=== PATIENT | female | born 1990 | race Caucasian/White ===

== ENCOUNTER 2016-11-02 08:42 | Emergency (ER) | payer MEDICAID ==
[~2016-11-02] VITALS: Ht 160 cm; Wt 142.0 kg
[~2016-11-02 08:42] MED LIST: ASTHMA INH; TRAM50TA PO
[2016-11-02 08:48] VITALS: BP 245/105; PULSE 115; RESP 30; O2SAT 96
[2016-11-02 08:55] VITALS: BP 183/88; PULSE 124; RESP 22; TEMP 98.3; O2SAT 98
[2016-11-02] MEDS ORDERED: CITA40TA4 PO (09:02)
[2016-11-02 09:13] VITALS: O2SAT 98
[2016-11-02] MEDS ORDERED: SODIUM CHLOR 0.9% 1000 ML INJ 1,000 ML IV ONE ×2 (09:15→10:30)
[2016-11-02] MEDS ORDERED: SODIUM CHLORIDE 0.9% FLUSH 5 ML FLUSH IVF PRN (09:15)
[2016-11-02] MEDS ORDERED: ONDANSETRON HCL 4 MG/2 ML VIAL IV PUSH ONE (09:15)
[2016-11-02] MEDS ORDERED: LORazepam 2 MG/ML VIAL IV ONE (09:15)
--- NOTE | 2016-11-02 09:20 | PD ---
HPI Chief Complaint: Medical Clearance Time Seen by Provider: 08:52 Travel History International Travel<30 days: No Contact w/Intl Traveler<30days: No Traveled to known affect area: No History of Present Illness HPI 26 y/o female presents with vomiting and diarrhea and anxious after starting citalopram 40 mg yesterday. She is very anxious and tearful and not wanting to talk on initial examination as she says that she's already told other people everything but she denies current suicidal or homicidal ideations. [facility] Past Medical History Narrative Medical On review of records Arthritis: Yes Anxiety: Yes Depression: Yes Psychiatric: Yes (ptsd) Tetanus Vaccination: Unknown ?: Not Past Surgical History Narrative Surgical On review of records Ear Surgery: Yes (TUBES) Tonsillectomy: Yes Social History Alcohol Use: No Tobacco Use: No Substance Use: No Allergies-Medications (Allergen,Severity, Reaction): Coded Allergies: No Known Allergies (Verified , 11/02/16) Reported Meds & Prescriptions Reported Meds & Active Scripts Active Metformin (Metformin HCl) 500 Mg Tab 500 Mg PO BIDPC With meals Reported Citalopram (Citalopram Hydrobromide) 40 Mg Tab 40 Mg PO DAILY Review of Systems ROS Limitations: Other: (anxious and not wanting to answer questions) Physical Exam Narrative GENERAL: Obese, well-developed patient. Tearful SKIN: Warm and diaphoretic HEAD: Normocephalic and atraumatic. EYES: No injection or drainage. ENT: No nasal drainage noted. NECK: Supple, trachea midline. CARDIOVASCULAR: Tachycardic rate and regular rhythm RESPIRATORY: Breath sounds equal bilaterally. No accessory muscle use. GASTROINTESTINAL: Abdomen soft, non-tender, nondistended. EXTREMITIES: No edema. NEUROLOGICAL: Awake. Moves all extremities. Normal speech. Data Data Last Documented VS Vital Signs Date Time Temp Pulse Resp B/P Pulse Ox O2 Delivery O2 Flow Rate FiO2 11/02/16 13:42 89 20 130/87 99 11/02/16 09:13 Room Air 11/02/16 08:55 98.3 Orders Complete Blood Count With Diff (11/02/16 09:01) Comprehensive Metabolic Panel (11/02/16 09:01) Ed Urine Pregnancytest Poc (11/02/16 09:01) Oximetry (11/02/16 09:01) Iv Access Insert/Monitor (11/02/16 09:01) Ecg Monitoring (11/02/16 09:01) Psych Screen (11/02/16 09:01) Sodium Chloride 0.9% Flush (Ns Flush) (11/02/16 09:15) Lorazepam Inj (Ativan Inj) (11/02/16 09:15) Drug Screen, Random Urine (11/02/16 09:01) Alcohol (Ethanol) (11/02/16 09:01) Sodium Chlor 0.9% 1000 Ml Inj (Ns 1000 M (11/02/16 09:15) Ondansetron Inj (Zofran Inj) (11/02/16 09:15) Electrocardiogram (11/02/16 ) Blood Glucose (11/02/16 09:03) Sodium Chlor 0.9% 1000 Ml Inj (Ns 1000 M (11/02/16 10:30) Labs Laboratory Tests Test 11/02/16 11/02/16 09:15 10:15 White Blood Count 10.4 TH/MM3 Red Blood Count 5.03 MIL/MM3 Hemoglobin 13.6 GM/DL Hematocrit 40.5 % Mean Corpuscular Volume 80.5 FL Mean Corpuscular Hemoglobin 27.0 PG Mean Corpuscular Hemoglobin 33.6 % Concent Red Cell Distribution Width 15.1 % Platelet Count 345 TH/MM3 Mean Platelet Volume 8.3 FL Neutrophils (%) (Auto) 65.4 % Lymphocytes (%) (Auto) 25.3 % Monocytes (%) (Auto) 7.1 % Eosinophils (%) (Auto) 1.3 % Basophils (%) (Auto) 0.9 % Neutrophils # (Auto) 6.8 TH/MM3 Lymphocytes # (Auto) 2.6 TH/MM3 Monocytes # (Auto) 0.7 TH/MM3 Eosinophils # (Auto) 0.1 TH/MM3 Basophils # (Auto) 0.1 TH/MM3 CBC Comment DIFF FINAL Differential Comment Sodium Level 134 MEQ/L Potassium Level 3.9 MEQ/L Chloride Level 99 MEQ/L Carbon Dioxide Level 24.5 MEQ/L Anion Gap 11 MEQ/L Blood Urea Nitrogen 11 MG/DL Creatinine 0.88 MG/DL Estimat Glomerular Filtration 77 ML/MIN Rate Random Glucose 332 MG/DL Calcium Level 8.7 MG/DL Total Bilirubin 0.4 MG/DL Aspartate Amino Transf 48 U/L (AST/SGOT) Alanine Aminotransferase 49 U/L (ALT/SGPT) Alkaline Phosphatase 99 U/L Total Protein 7.9 GM/DL Albumin 3.7 GM/DL Ethyl Alcohol Level LESS THAN 3 MG/DL Urine Opiates Screen NEG Urine Barbiturates Screen NEG Urine Amphetamines Screen NEG Urine Benzodiazepines Screen NEG Urine Cocaine Screen NEG Urine Cannabinoids Screen POS MDM Medical Decision Making Medical Screen Exam Complete: Yes Emergency Medical Condition: Yes Medical Record Reviewed: Yes (past history confirmed) Interpretation(s) CBC & BMP Diagram 11/02/16 09:15 Differential Diagnosis Anxiety, electrolyte abnormality, hypoglycemia, medication effect.... Narrative Course Will check blood work, test, EKG and dose with Ativan, Zofran, IV fluids and reevaluate No emesis here, feeling better after Ativan, patient states has been on metformin in the past but her doctor did not fill comfortable refilling this without blood work so she currently is not on it. I will provide her with refill of prescription for this and have psychiatry talk with her which she agrees to.Mental health screening discussed with the patient. Psychiatric screen ordered. Patient denies any new complaints and states that they are feeling better. Patient happy with care, all questions answered. Patient knows that follow up is incumbent on them and to return to the emergency room immediately if new or worsening symptoms develop. Patient given strict return precautions, vitals reviewed and are normal, agrees to further workup as an outpatient. Physician Communication Physician Communication Psychiatry team states okay for discharge, decrease citalopram to 10 mg and follow-up on Tuesday as scheduled with her team Diagnosis Primary Impression: Hyperglycemia Additional Impression: Anxiety Patient Instructions: General Instructions Additional Instructions: Per psychiatry team decrease citalopram to 10 mg and follow on Tuesday as scheduled with your physician; discuss with your primary care physician your elevated glucose and I will refill your metformin; return as needed Med/Other Pt SpecificInfo: Prescription(s) given, Existing Med Changed Scripts Metformin 500 Mg [id number] Mg PO BIDPC #60 TAB Ref 0 With meals Prov:Shelley Lewis MD 11/02/16 Disposition: DISCHARGE HOME Condition: Stable Shelley Lewis MD Nov 02, 2016 09:20
[2016-11-02 09:29] LABS: AUTOMATED NEUTROPHIL # 6.8 TH/MM3 (1.8-7.7); BASOPHIL # 0.1 TH/MM3 (0-0.2); BASOPHIL % 0.9 % (0.0-2.0); EOSINOPHIL # 0.1 TH/MM3 (0-0.4); EOSINOPHIL % 1.3 % (0.0-4.0); HEMATOCRIT 40.5 % (35.0-46.0); HEMO FLAGS DIFF FINAL; LYMPH % 25.3 % (9.0-44.0); LYMPHOCYTE # 2.6 TH/MM3 (1.0-4.8); MEAN CELL VOLUME 80.5 FL (80.0-100.0); MEAN CORPUSCULAR HGB CONC 33.6 % (32.0-36.0); MONO % 7.1 % (0.0-8.0); NEUT % 65.4 % (16.0-70.0); PLATELET COUNT 345 TH/MM3 (150-450); RED BLOOD COUNT 5.03 MIL/MM3 (4.00-5.30); RED CELL DISTRIBUTION WIDTH 15.1 % (11.6-17.2); WHITE BLOOD COUNT 10.4 TH/MM3 (4.0-11.0)
[2016-11-02 09:41] LABS: ANION GAP 11 MEQ/L (5-15)
[2016-11-02 09:44] LABS: ALKALINE PHOSPHATASE 99 U/L (45-117); ALT (GPT) 49 U/L (10-53); AST (GOT) 48 U/L (15-37); BICARBONATE 24.5 MEQ/L (21.0-32.0); BLOOD UREA NITROGEN 11 MG/DL (7-18); CHLORIDE 99 MEQ/L (98-107); GLOMERULAR FILTRATION RATE 77 ML/MIN (>89); POTASSIUM 3.9 MEQ/L (3.5-5.1); SODIUM (NA) 134 MEQ/L (136-145); TOTAL BILIRUBIN ADULT 0.4 MG/DL (0.2-1.0)
[2016-11-02] MEDS ORDERED: METF500T PO ×2 (09:52→13:20)
[2016-11-02 10:48] VITALS: BP 132/63; PULSE 63; RESP 20; O2SAT 99
[2016-11-02 10:52] LABS: AMPHETAMINE, URINE NEG (NEG); BARBITURATES, URINE NEG (NEG); COCAINE, URINE NEG (NEG)
[2016-11-02 11:51] VITALS: BP 140/62; PULSE 99; RESP 20; O2SAT 99
[2016-11-02 13:42] VITALS: BP 130/87
--- NOTE | 2016-11-03 11:41 | EKG ---
Date Performed: 11/02/2016 Time Performed: 09:26:45 PTAGE: 26 years EKG: Sinus rhythm WITH SINUS ARRHYTHMIA NORMAL ECG PREVIOUS TRACING : 06/23/2011 13.26 DOCTOR: Allan Mitchell Interpretating Date/Time 11/03/2016 11:39:55
== END 2016-11-02 13:43 | disposition home or self-care (01) ==
LOC: NEPE 08:42
DX: R73.9 Hyperglycemia, unspecified (principal); F41.9 Anxiety disorder, unspecified; R19.7 Diarrhea, unspecified
CPT/HCPCS: 80053; 80307; 80320; 84703; 85025; 93005; 96361; 96374; 96375; 99284; J2060; J2405; J7030

== ENCOUNTER 2016-12-20 10:01 | Emergency (ER) | payer SELFPAY ==
[~2016-12-20] VITALS: Ht 165.1 cm; Wt 145.0 kg
[~2016-12-20 10:01] MED LIST changes: -ASTHMA INH; +CITA40TA4 PO; +METF500T PO; -TRAM50TA PO
[2016-12-20 10:03] VITALS: BP 180/80; PULSE 78; RESP 20; TEMP 98.4; O2SAT 100
[2016-12-20] MEDS ORDERED: GLYB5TAB3 PO (10:25)
[2016-12-20] MEDS ORDERED: ALBUAER3 INH ×2 (10:26→11:48)
--- NOTE | 2016-12-20 10:32 | PD ---
HPI Chief Complaint: Respiratory Symptoms Time Seen by Provider: 10:32 Travel History International Travel<30 days: Yes Contact w/Intl Traveler<30days: Yes Name of Country Traveled to: [place] 12/16 Traveled to known affect area: No History of Present Illness HPI 26-year-old female presents to emergency Department with complaint of shortness of breath and chest tightness since last night. She says she's been sick for the last few weeks with cough and nasal congestion. She has taken a Z-Joaquin with some improvement in symptoms. Reports continued cough. She does have history of asthma and has been using her inhaler with good relief of symptoms. Ran out of her inhaler yesterday. Reports wheezing. Reports subjective fever. Reports pain in her left mid back with breathing. Denies chest pain. Denies nausea, vomiting. Denies history of DVT or PE. Denies hemoptysis. He recently traveled to [place] within the last 4 weeks. History of hypertension, diabetes, asthma. No other modifying factors or associated signs and symptoms. PFSH Past Medical History Arthritis: Yes Anxiety: Yes Depression: Yes Diabetes: Yes Psychiatric: Yes (ptsd) Respiratory: Yes (ASTHMA) Past Surgical History Ear Surgery: Yes (TUBES) Tonsillectomy: Yes Social History Alcohol Use: No Tobacco Use: No Substance Use: No (Denies) Allergies-Medications (Allergen,Severity, Reaction): Coded Allergies: No Known Allergies (Verified , 12/20/16) Reported Meds & Prescriptions Reported Meds & Active Scripts Active Robaxin (Methocarbamol) 500 Mg Tab 500 Mg PO QID PRN Ibuprofen 800 Mg Tab 800 Mg PO Q6HR PRN Proair Hfa 8.5 GM Inh (Albuterol Sulfate) 90 Mcg/Act Aer 2 Puff INH Q4-6H PRN 108 mcg/actuation Metformin (Metformin HCl) 500 Mg Tab 500 Mg PO BIDPC With meals Reported Proair Hfa 8.5 GM Inh (Albuterol Sulfate) 90 Mcg/Act Aer 1 Puff INH Q4H PRN 108 mcg/actuation Glyburide 5 Mg Tab 5 Mg PO DAILY Take with meals at the same time each day Review of Systems Except as stated in HPI: all other systems reviewed are Neg Physical Exam Narrative GENERAL: Well-nourished, well-developed female patient, in no acute distress SKIN: Warm and dry. HEAD: Atraumatic. Normocephalic. EYES: Pupils equal and round. No scleral icterus. No injection or drainage. ENT: Mucosa pink and moist. No erythema or exudates. No uvular edema. No uvular , palatal, or tonsillar deviation. Airway patent. Nares without nasal blood, purulent drainage or septal hematoma. EARS: Bilateral pinnae and external canals appear within normal limits. Bilateral tympanic membranes without erythema, dullness or perforation. NECK: Trachea midline. No lymphadenopathy. CARDIOVASCULAR: Regular rate and rhythm. No murmur appreciated. RESPIRATORY: No accessory muscle use. Lungs clear and equal to auscultation. Breath sounds equal bilaterally. No retractions or tachypnea. No Audible wheezing noted. GASTROINTESTINAL: Abdomen soft, non-tender, nondistended. Hepatic and splenic margins not palpable. Bowel sounds are active 4 quadrants. MUSCULOSKELETAL: No obvious deformities. No clubbing. No cyanosis. No edema. NEUROLOGICAL: Awake and alert. Oriented 3. No obvious cranial nerve deficits. Motor grossly within normal limits. Normal speech. Moves all extremities. 5/5 strength to all extremities. PSYCHIATRIC: Appropriate mood and affect; insight and judgment normal. Data Data Last Documented VS Vital Signs Date Time Temp Pulse Resp B/P Pulse Ox O2 Delivery O2 Flow Rate FiO2 12/20/16 11:06 100 21 12/20/16 10:03 98.4 78 20 180/80 Room Air Orders Albuterol-Ipratropium Neb (Duoneb Neb) (12/20/16 10:45) Chest, Pa & Lat (12/20/16 10:32) Albuterol-Ipratropium Neb (Duoneb Neb) (12/20/16 11:15) Influenzae A/B Antigen (12/20/16 11:11) Ibuprofen (Motrin) (12/20/16 11:15) MDM Medical Decision Making Medical Screen Exam Complete: Yes Emergency Medical Condition: Yes Medical Record Reviewed: Yes Differential Diagnosis Influenza, pneumonia, asthma exacerbation, less likely PE Narrative Course 26-year-old female with history of asthma presents complaining of shortness of breath and chest tightness. She has been sick for the past couple weeks and has had a Z-Joaquin. She ran out of her pro-air inhaler yesterday. Patient appears in no acute distress. She is without retractions or tachypnea. Lung sounds are clear and equal throughout. DuoNeb 1 ordered. Chest x-ray ordered. Influenza ordered. 1105: Patient complaining of worsening of shortness of breath. Lungs are clear and equal throughout. Patient is crying complaining she cannot breathe. Respiratory called to bedside. Patient's oxygen saturation is 100% on room air. DuoNeb 3 being administered. Denies chest pain. Reports pain in her left upper back is bothering her. Ibuprofen ordered. 1121: Chest x-ray with no acute findings. Patient reports history of anxiety. Patient also reports history of chronic back pain with 6 herniated disks. She says her back pain is consistent with chronic back pain. Patient has a follow- up appointment tomorrow at 1220 with her primary care provider in [place]. 1130: Patient still receiving DuoNeb treatments. She reports improvement in symptoms; denies feeling short of breath and difficulty breathing. 1150: DuoNeb treatment complete. Patient reports improvement in symptoms. She denies chest tightness or shortness of breath at this time. She is continuing to complain of left upper back pain. She has reproducible tenderness to the left trapezius muscle consistent with possible strain secondary to cough exacerbations. 1227: Patient sleeping in room. Influenza pending. 1231: Influenza negative. Patient feels comfortable going home. She continues to deny shortness of breath. Pro-air inhaler, ibuprofen, and Robaxin prescribed for home. Patient has follow-up appointment with her primary care provider tomorrow. Patient verbalizes understanding and agreement with treatment plan. Patient is medically cleared and stable for discharge. Discussed reasons to return to the emergency department. Instructed patient to follow up with primary care provider. Patient agrees with treatment plan. The patients vital signs are stable and the patient is stable for outpatient follow- up and treatment. Patient discharged home, stable and in no acute distress. Diagnosis Primary Impression: Asthma exacerbation Referrals: Primary Care Physician Patient Instructions: Asthma (ED), General Instructions, Muscle Strain (ED) Departure Forms: Tests/Procedures, Work Release Enter return to work date: Dec 21, 2016 Additional Instructions: Use albuterol inhaler 2-4 puffs every 4 hours at home as needed for shortness of breath and wheezing avoid asthma triggers such as second hand smoke, dust, known allergens Follow-up with primary care provider within 1 to 2 days Return to emergency department immediately with worsening of symptoms Med/Other Pt SpecificInfo: Prescription(s) given Scripts Methocarbamol (Robaxin)500 Mg [id number] Mg PO QID PRN (MUSCLE SPASM) #30 TAB Ref 0 Prov:Sara Reilly 12/20/16 Ibuprofen 800 Mg [id number] Mg PO Q6HR PRN (PAIN) #30 TAB Ref 0 Prov:Sara Reilly 12/20/16 Albuterol 8.5 GM Inh (Proair Hfa 8.5 GM Inh)90 Mcg/Act Aer2 Puff INH Q4-6H PRN ( SOB/WHEEZING) #1 INHALER Ref 0 108 mcg/actuation Prov:Sara Reilly 12/20/16 Disposition: 01 DISCHARGE HOME Condition: Stable Sara Reilly Dec 20, 2016 10:32
[2016-12-20] MEDS ORDERED: RESP: ALBUTEROL 2.5 MG/IPRATROPIUM 0.5 MG NEB (SCH) INH ONE (10:45)
[2016-12-20 11:06] VITALS: O2SAT 100
[2016-12-20] MEDS: RESP: ALBUTEROL 2.5 MG/IPRATROPIUM 0.5 MG NEB (SCH) INH (11:08)
--- NOTE | 2016-12-20 11:09 | RADRPT ---
EXAM DATE/TIME: 12/20/2016 10:58 [facility] COMPARISON: No previous studies available for comparison. INDICATIONS : Cough MEDICAL HISTORY : None. SURGICAL HISTORY : None. ENCOUNTER: Initial ACUITY: 1 day PAIN SCORE: 0/10 LOCATION: Bilateral chest FINDINGS: PA and lateral views of the chest demonstrate the lungs to be symmetrically aerated without evidence of mass, infiltrate or effusion. The cardiomediastinal contours are unremarkable. Osseous structure s are intact. CONCLUSION: No acute disease. Alexandro Jeffries MD on December 20, 2016 at 11:07 Board Certified Radiologist. This report was verified electronically.
[2016-12-20] MEDS ORDERED: IBUPROFEN 800 MG TAB PO ONE (11:15)
[2016-12-20] MEDS ORDERED: ROBA500T PO (11:48)
[2016-12-20] MEDS ORDERED: IBUP800T23 PO (11:48)
== END 2016-12-20 12:37 | disposition home or self-care (01) ==
LOC: NEPK 10:01
DX: J45.901 Unspecified asthma with (acute) exacerbation (principal); R05 Cough; R50.9 Fever, unspecified; F41.9 Anxiety disorder, unspecified; F32.9 Major depressive disorder, single episode, unspecified; E11.9 Type 2 diabetes mellitus without complications; F43.10 Post-traumatic stress disorder, unspecified
CPT/HCPCS: 71020; 87804; 94640; 94664; 99283

== ENCOUNTER 2017-06-10 12:37 | Emergency (ER) | payer OTHER ==
[~2017-06-10] VITALS: Ht 165.1 cm; Wt 135.0 kg
[~2017-06-10 12:37] MED LIST changes: +ALBUAER3 INH; -CITA40TA4 PO; +GLYB5TAB3 PO; +IBUP800T23 PO; +ROBA500T PO
[2017-06-10 12:42] VITALS: BP 248/120; PULSE 104; RESP 24; TEMP 98.3; O2SAT 98
[2017-06-10] MEDS ORDERED: LISI2.5T3 PO (12:53)
[2017-06-10] MEDS ORDERED: CYCL1TAB29 PO (12:53)
[2017-06-10] MEDS ORDERED: VIST50CA PO (12:53)
[2017-06-10] MEDS ORDERED: [UNRECOGNIZED DRUG - REMARK] (12:54)
[2017-06-10] MEDS ORDERED: ONDANSETRON HCL 4 MG/2 ML VIAL IV PUSH ONE (13:30)
[2017-06-10] MEDS ORDERED: SODIUM CHLOR 0.9% 1000 ML INJ 1,000 ML IV ONE (13:30)
[2017-06-10] MEDS ORDERED: MORPHINE SULFATE 4 MG/ML INJ IV PUSH ONE (13:30)
[2017-06-10] MEDS ORDERED: IOHEXOL 350 MG/ML 10 ML VIAL (for RAD DIAG) IVCONTRAST ONE (13:53)
[2017-06-10 13:57] LABS: AUTOMATED NEUTROPHIL # 7.7 TH/MM3 (1.8-7.7); BASOPHIL # 0.1 TH/MM3 (0-0.2); BASOPHIL % 0.7 % (0.0-2.0); EOSINOPHIL # 0.1 TH/MM3 (0-0.4); EOSINOPHIL % 0.9 % (0.0-4.0); HEMATOCRIT 39.9 % (35.0-46.0); HEMO FLAGS DIFF FINAL; LYMPH % 19.7 % (9.0-44.0); MEAN CELL VOLUME 81.2 FL (80.0-100.0); MEAN CORPUSCULAR HGB CONC 33.3 % (32.0-36.0); MONO % 3.6 % (0.0-8.0); NEUT % 75.1 % (16.0-70.0); PLATELET COUNT 322 TH/MM3 (150-450); RED CELL DISTRIBUTION WIDTH 14.9 % (11.6-17.2); WHITE BLOOD COUNT 10.2 TH/MM3 (4.0-11.0)
[2017-06-10 14:05] LABS: BLOOD, URINE MOD (NEG); COMMENT (UR) CULT NOT INDICATED; CULTURE IF INDICATED CULT NOT INDICATED; GLUCOSE,URINE NEG (NEG); KETONE, URINE NEG (NEG); MUCUS URINE FEW /lpf (OCC); NITRITE,URINE NEG (NEG); SQUAMOUS EPITHELIAL CELL URINE 1 /hpf (0-5); URINE COLOR LIGHT-YELLOW (YELLW/STRAW)
[2017-06-10 14:16] LABS: ALKALINE PHOSPHATASE 96 U/L (45-117); TOTAL BILIRUBIN ADULT 0.3 MG/DL (0.2-1.0)
[2017-06-10 14:18] LABS: ALT (GPT) 27 U/L (10-53); ANION GAP 12 MEQ/L (5-15); AST (GOT) 20 U/L (15-37); BICARBONATE 21.5 MEQ/L (21.0-32.0); BLOOD UREA NITROGEN 11 MG/DL (7-18); CHLORIDE 105 MEQ/L (98-107); GLOMERULAR FILTRATION RATE 70 ML/MIN (>89); SODIUM (NA) 138 MEQ/L (136-145)
--- NOTE | 2017-06-10 14:20 | RADRPT ---
EXAM DATE/TIME: 06/10/2017 13:40 [facility] COMPARISON: No previous studies available for comparison. INDICATIONS : Lower pelvic pain for one day. IV CONTRAST: 98 cc Omnipaque 350 (iohexol) IV ORAL CONTRAST: No oral contrast ingested. RADIATION DOSE: 32.09 CTDIvol (mGy) ; Patient body habitus MEDICAL HISTORY : Hypertension. Diabetes mellitus type 2. SURGICAL HISTORY : None. ENCOUNTER: Initial ACUITY: 1 day PAIN SCALE: 7/10 LOCATION: Bilateral lower quadrant TECHNIQUE: Volumetric scanning of the abdomen and pelvis was performed. Using automated exposure control and ad justment of the mA and/or kV according to patient size, radiation dose was kept as low as reasonably achievable to obtain optimal diagnostic quality images. DICOM format image data is available electro nically for review and comparison. FINDINGS: LOWER LUNGS: The visualized lower lungs are clear. LIVER: Decreased density without lesion. There is no dilation of the biliary tree. No calcified gallstones . SPLEEN: Normal size without lesion. PANCREAS: Within normal limits. KIDNEYS: Normal in size and shape. Questionable subtle areas of low attenuation in the kidneys bilaterally. Th ere is no mass, stone or hydronephrosis. ADRENAL GLANDS: Normal VASCULAR: There is no aortic aneurysm. BOWEL/MESENTERY: The stomach, small bowel, and colon demonstrate no acute abnormality. There is no free intraperitone al air or fluid. ABDOMINAL WALL: Within normal limits. RETROPERITONEUM: There is no lymphadenopathy. BLADDER: No wall thickening or mass. REPRODUCTIVE: Stranding in the pelvis likely related to uterus and some minimal pelvic free fluid. Minimal ascites. INGUINAL: There is no lymphadenopathy or hernia. MUSCULOSKELETAL: Within normal limits for patient age. CONCLUSION: 1. Minimal free fluid adjacent to the liver. 2. Minimal stranding in the fat in the pelvis could be related to third spacing. 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 Minimal pelvic free fluid. 3. Questionable subtle areas of low attenuation in the kidneys which is nonspecific and could be rica fact versus less likely pyelonephritis. Clinical correlation and urinalysis. Rock Coleman MD on June 10, 2017 at 14:15 Board Certified Radiologist. This report was verified electronically.
[2017-06-10] MEDS ORDERED: cefTRIAXone INJ 1,000 MG in SODIUM CHLORIDE 0.9% INJ 100 ML IV ONE (14:30)
[2017-06-10] MEDS ORDERED: oxyCODONE/ACETAMINOPHEN 5 MG/325 MG TAB PO ONE (15:00)
--- NOTE | 2017-06-10 15:22 | PD ---
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 She says the pain is on the under side of her vagina. She says she was holding her urine until she got home and then she felt severe pain when she urinated. She says the pain has continued since then. She denies any discharge. She says she had testing done with her supervisor [employer] splitting a month ago and everything was normal. She had some nausea. She denies fever or chills. PFSH Past Medical History Arthritis: Yes Anxiety: Yes Depression: Yes Diabetes: Yes Patient Takes Glucophage: Yes Hypertension: Yes Psychiatric: Yes (ptsd) Respiratory: Yes (ASTHMA) ?: Not LMP: 05/25/17 Past Surgical History Ear Surgery: Yes (TUBES) Tonsillectomy: Yes Social History Alcohol Use: No Tobacco Use: No Substance Use: No (Denies) Allergies-Medications (Allergen,Severity, Reaction): Coded Allergies: No Known Allergies (Verified , 12/20/16) Reported Meds & Prescriptions Reported Meds & Active Scripts Active Proair Hfa 8.5 GM Inh (Albuterol Sulfate) 90 Mcg/Act Aer 2 Puff INH Q4-6H PRN 108 mcg/actuation Metformin (Metformin HCl) 500 Mg Tab 500 Mg PO BIDPC With meals Reported [pain clinic ] DIRECTED Vistaril (Hydroxyzine Pamoate) 50 Mg Cap 50 Mg PO QID PRN Lisinopril 2.5 Mg Tab Unknown Dose PO DAILY Flexeril (Cyclobenzaprine HCl) 10 Mg Tab 10 Mg PO TID Proair Hfa 8.5 GM Inh (Albuterol Sulfate) 90 Mcg/Act Aer 1 Puff INH Q4H PRN 108 mcg/actuation Glyburide 5 Mg Tab 5 Mg PO DAILY Take with meals at the same time each day Review of Systems Except as stated in HPI: all other systems reviewed are Neg General / Constitutional: No: Fever, Chills HENT: No: Headaches, Lightheadedness Cardiovascular: No: Chest Pain or Discomfort Respiratory: No: Shortness of Breath Gastrointestinal: Positive: Nausea, Abdominal Pain Genitourinary: No: Dysuria, Discharge Musculoskeletal: No: Myalgias, Pain Skin: No Rash, No Change in Pigmentation Neurologic: No: Weakness, Dizziness Physical Exam Narrative GENERAL: Awake and alert, in crying in pain. SKIN: Focused skin assessment warm/dry. No evidence of infection. HEAD: Atraumatic. Normocephalic. EYES: Pupils equal and round. No scleral icterus. ENT: Mucous membranes pink and moist. NECK: Trachea midline. No JVD. CARDIOVASCULAR: Regular rate and rhythm. No murmur appreciated. RESPIRATORY: No accessory muscle use. Clear to auscultation. Breath sounds equal bilaterally. GASTROINTESTINAL: Abdomen soft, non-tender, nondistended. Tender to palpation to the pelvic area. : Exam performed in the presence of a female nurse. There is no discharge, no abnormal lesions. No skin color changes. MUSCULOSKELETAL: No obvious deformities. No clubbing. No cyanosis. No edema. NEUROLOGICAL: Awake and alert. No obvious cranial nerve deficits. Motor grossly within normal limits. Normal speech. PSYCHIATRIC: Appropriate mood and affect; insight and judgment normal. Data Data Last Documented VS Vital Signs Date Time Temp Pulse Resp B/P (MAP) Pulse Ox O2 Delivery O2 Flow Rate FiO2 06/10/17 12:42 98.3 104 24 248/120 (162) 98 Orders Orders Iv Access Insert/Monitor (06/10/17 13:16) Complete Blood Count With Diff (06/10/17 13:16) Comprehensive Metabolic Panel (06/10/17 13:16) Urinalysis - C+S If Indicated (06/10/17 13:16) Ct Abd/Pel W Iv Contrast(Rout) (06/10/17 ) Sodium Chlor 0.9% 1000 Ml Inj (Ns 1000 M (06/10/17 13:30) Morphine Inj (Morphine Inj) (06/10/17 13:30) Ondansetron Inj (Zofran Inj) (06/10/17 13:30) Iohexol 350 Inj (Omnipaque 350 Inj) (06/10/17 13:53) Ceftriaxone Inj (Rocephin Inj) (06/10/17 14:30) Oxycodone-Acetamin 5-325 Mg (Percocet (06/10/17 15:00) Labs Laboratory Tests Test 06/10/17 13:30 White Blood Count 10.2 TH/MM3 Red Blood Count 4.90 MIL/MM3 Hemoglobin 13.3 GM/DL Hematocrit 39.9 % Mean Corpuscular Volume 81.2 FL Mean Corpuscular Hemoglobin 27.0 PG Mean Corpuscular Hemoglobin Concent 33.3 % Red Cell Distribution Width 14.9 % Platelet Count 322 TH/MM3 Mean Platelet Volume 9.0 FL Neutrophils (%) (Auto) 75.1 % Lymphocytes (%) (Auto) 19.7 % Monocytes (%) (Auto) 3.6 % Eosinophils (%) (Auto) 0.9 % Basophils (%) (Auto) 0.7 % Neutrophils # (Auto) 7.7 TH/MM3 Lymphocytes # (Auto) 2.0 TH/MM3 Monocytes # (Auto) 0.4 TH/MM3 Eosinophils # (Auto) 0.1 TH/MM3 Basophils # (Auto) 0.1 TH/MM3 CBC Comment DIFF FINAL Differential Comment Urine Color LIGHT-YELLOW Urine Turbidity CLEAR Urine pH 5.0 Urine Specific [place] 1.009 Urine Protein NEG mg/dL Urine Glucose (UA) NEG mg/dL Urine Ketones NEG mg/dL Urine Occult Blood MOD Urine Nitrite NEG Urine Bilirubin NEG Urine Urobilinogen LESS THAN 2.0 MG/DL Urine Leukocyte Esterase NEG Urine RBC 6 /hpf Urine WBC 5 /hpf Urine Squamous Epithelial Cells 1 /hpf Urine Mucus FEW /lpf Microscopic Urinalysis Comment CULT NOT INDICATED Blood Urea Nitrogen 11 MG/DL Creatinine 0.95 MG/DL Random Glucose 241 MG/DL Total Protein 8.5 GM/DL Albumin 3.8 GM/DL Calcium Level 9.6 MG/DL Alkaline Phosphatase 96 U/L Aspartate Amino Transf (AST/SGOT) 20 U/L Alanine Aminotransferase (ALT/SGPT) 27 U/L Total Bilirubin 0.3 MG/DL Sodium Level 138 MEQ/L Potassium Level 4.0 MEQ/L Chloride Level 105 MEQ/L Carbon Dioxide Level 21.5 MEQ/L Anion Gap 12 MEQ/L Estimat Glomerular Filtration Rate 70 ML/MIN [facility] Medical Decision Making Medical Screen Exam Complete: Yes Emergency Medical Condition: Yes Medical Record Reviewed: Yes Differential Diagnosis UTI versus pyelonephritis versus ovarian cyst Narrative Course Patient is a 26-year-old female who comes in complaining of vaginal pain. Exam shows no abnormalities. IV established, labs sent. Labs show no acute abnormalities. CT abdomen and pelvis performed shows evidence of inflammation, possible pyelonephritis. Patient given morphine, Zofran, IV fluids, Rocephin. She continues to complain of pain. Given a dose of Percocet. She'll be discharged with prescription for pain medicine as well as antibiotics. Advised to follow-up with gynecology. Advised to return to the ED as needed for any worsening symptoms. Diagnosis Primary Impression: Pelvic and perineal pain Patient Instructions: General Instructions, Pelvic Pain in Women (ED) Additional Instructions: Follow up with gynecology. Take all of your antibiotics. Take pain medicine as needed. Return to the ED as needed for any worsening symptoms. Scripts Hydrocodone-Acetaminophen (Lortab) 5-325 Mg Tab 1 TAB PO Q6H Y for PAIN, #10 TAB 0 Refills Prov: Tabitha Domínguez MD 06/10/17 Ciprofloxacin (Cipro) 500 Mg Tab 500 MG PO BID for Infection for 10 Days, #20 TAB 0 Refills Prov: Tabitha Domínguez MD 06/10/17 Disposition: 01 DISCHARGE HOME Condition: Stable Tabitha Domínguez MD Jun 10, 2017 15:22
[2017-06-10] MEDS ORDERED: CIPR-9 PO (15:32)
[2017-06-10] MEDS ORDERED: HYDR-3533 PO (15:32)
== END 2017-06-10 15:59 | disposition home or self-care (01) ==
LOC: NEPD 12:37
DX: R10.2 Pelvic and perineal pain (principal); R11.0 Nausea; M19.90 Unspecified osteoarthritis, unspecified site; F41.9 Anxiety disorder, unspecified; F32.9 Major depressive disorder, single episode, unspecified; E11.9 Type 2 diabetes mellitus without complications; I10 Essential (primary) hypertension; F43.10 Post-traumatic stress disorder, unspecified; J45.909 Unspecified asthma, uncomplicated
CPT/HCPCS: 74177; 80053; 81001; 85025; 96361; 96365; 96375; 99285; J0696; J2270; J2405; J7030; Q9967